=== PATIENT | male | born 1965 | race Caucasian/White ===

== ENCOUNTER 2016-08-22 12:36 | Emergency (ER) | payer MEDICARE, MEDICAID ==
[~2016-08-22] VITALS: Ht 180.3 cm; Wt 77.1 kg
[~2016-08-22 12:36] MED LIST: CYCL5TAB PO; MORP15TA7 PO; OXYC10TA49 PO
--- NOTE | 2016-08-22 13:05 | NUR ---
AT BEDSIDE PERFORMING MSE
--- NOTE | 2016-08-22 14:38 | NUR ---
Patient discharged to home in stable conditon. Written and verbal after care instructions given to patient. Patient verbalizes understanding of instructions.
== END 2016-08-22 15:01 | disposition home or self-care (01) ==
LOC: ER 12:36
DX: S93.401A Sprain of unspecified ligament of right ankle, initial encounter (principal); R25.2 Cramp and spasm; G82.50 Quadriplegia, unspecified; F32.9 Major depressive disorder, single episode, unspecified; F10.20 Alcohol dependence, uncomplicated; X58.XXXA Exposure to other specified factors, initial encounter; Y93.89 Activity, other specified; Y99.8 Other external cause status; Y92.89 Other specified places as the place of occurrence of the external cause
CPT/HCPCS: 73610; 73650; 99284; A4663

== ENCOUNTER 2017-05-07 18:46 | Emergency (ER) | payer MEDICARE, MEDICAID ==
[~2017-05-07] VITALS: Ht 182.9 cm; Wt 68.0 kg
--- NOTE | 2017-05-07 20:20 | NUR ---
Patient walked in to ER requesting medication refill. To room 4B.
--- NOTE | 2017-05-07 20:26 | NUR ---
ERMD at bedside.
[2017-05-07] MEDS ORDERED: MORPHINE SULFATE IR 30 MG TABLET PO PRN (20:30)
--- NOTE | 2017-05-07 20:50 | NUR ---
Patient discharged to home in stable conditon. Written and verbal after care instructions given. Patient verbalizes understanding of instructions.
[2017-05-07] MEDS ORDERED: MORPHINE SULFATE IR 30 MG TABLET ONE (20:56)
== END 2017-05-07 20:51 | disposition home or self-care (01) ==
LOC: ER 18:49
DX: Z76.0 Encounter for issue of repeat prescription (principal); G89.29 Other chronic pain; M54.2 Cervicalgia; F43.10 Post-traumatic stress disorder, unspecified
CPT/HCPCS: 99283; A4663

== ENCOUNTER 2017-10-02 17:33 | Emergency (ER) | payer MEDICARE, MEDICAID ==
[~2017-10-02] VITALS: Ht 182.9 cm; Wt 68.0 kg
--- NOTE | 2017-10-02 17:53 | NUR ---
Patient discharged to home in stable conditon. Written and verbal after care instructions given to patient. Patient verbalizes understanding of instructions.
== END 2017-10-02 17:54 | disposition home or self-care (01) ==
LOC: ER 17:35
DX: F43.10 Post-traumatic stress disorder, unspecified (principal); F90.9 Attention-deficit hyperactivity disorder, unspecified type; R00.0 Tachycardia, unspecified; F32.9 Major depressive disorder, single episode, unspecified; I48.91 Unspecified atrial fibrillation
CPT/HCPCS: 99283; A4663; 93005

== ENCOUNTER 2018-04-13 21:21 | Emergency (ER) | payer MEDICARE, MEDICAID ==
[~2018-04-13] VITALS: Ht 172.7 cm; Wt 83.9 kg
[2018-04-13] MEDS ORDERED: HYDROMORPHONE 1 MG/1 ML DISP.SYRIN IM ONE (22:15)
[2018-04-13] MEDS ORDERED: HYDROMORPHONE 1 MG/1 ML DISP.SYRIN ONE (22:16)
--- NOTE | 2018-04-13 22:20 | NUR ---
PT A/OX4, ABLE TO FOLLOW COMMANDS. PT SELF-AMBULATED INTO THE DEPARTMENT USING A SINGLE LEG CANE. PT C/O LOWER BACK PAIN THAT STARTED YESTERDAY AFTER A FALL AT HOME. PT STATES HIS LEGS "GAVE OUT" AND HE FELL ONTO HIS BUTTOCKS. PT DENIES HEAD INJURY, LOC. LOWER BACK PAIN PROVOKED UPON MOVEMENT, SHARP IN QUALITY, DOES NOT RADIATE, 8/10, CONSTANT. PT DENIES C/P, SOB, N/V/D, DIZZINESS, HEADACHE.
--- NOTE | 2018-04-13 22:45 | NUR ---
equipment technician at bedside
--- NOTE | 2018-04-13 22:54 | NUR ---
Patient discharged to home in stable conditon. Written and verbal after care instructions given. Patient verbalizes understanding of instructions. Pt. d/c w/ prescription per MD order, informed not to drive after taking medication, all pt. belongings taken,
== END 2018-04-13 22:57 | disposition home or self-care (01) ==
LOC: ER 21:23
DX: M54.5 Low back pain (principal); I48.91 Unspecified atrial fibrillation; Z79.891 Long term (current) use of opiate analgesic; Z79.899 Other long term (current) drug therapy
CPT/HCPCS: 71045; 72100; 72170; 96372; 99283; J1170; A4663

== ENCOUNTER 2018-08-17 12:15 | Emergency (ER) | payer MEDICARE, MEDICAID ==
[~2018-08-17] VITALS: Ht 172.7 cm; Wt 83.9 kg
--- NOTE | 2018-08-17 13:50 | NUR ---
Patient discharged to home in stable conditon. Written and verbal after care instructions given. Patient verbalizes understanding of instructions.
[2018-08-17 13:51] VITALS: BP 111/87
== END 2018-08-17 13:52 | disposition home or self-care (01) ==
LOC: ER 12:15
DX: K59.00 Constipation, unspecified (principal); I48.91 Unspecified atrial fibrillation; Z79.899 Other long term (current) drug therapy
CPT/HCPCS: 74021; A4663

== ENCOUNTER 2020-02-06 21:51 | Emergency (ER) | payer MEDICAID, MEDICARE | END 2020-02-06 22:46 | disposition left against medical advice (07) | LOC: ER 21:53 | DX: Z75.3 Unavailability and inaccessibility of health-care facilities (principal) ==

== ENCOUNTER 2020-02-11 14:41 | Emergency (ER) | payer MEDICARE, OTHER ==
[~2020-02-11] VITALS: Ht 172.7 cm; Wt 83.9 kg
--- NOTE | 2020-02-11 14:50 | NUR ---
patient seen by Dr. Roblero.
[2020-02-11] MEDS ORDERED: HYDROCODONE/APAP 10-325 MG TABLET PO ONE (15:15)
[2020-02-11] MEDS ORDERED: HYDROCODONE/APAP 10-325 MG TABLET ONE (15:21)
--- NOTE | 2020-02-11 16:07 | NUR ---
dcd instructions and prescription given to pt. who verbalized understanding.
== END 2020-02-11 16:09 | disposition home or self-care (01) ==
LOC: ER 14:41
DX: S49.92XA Unspecified injury of left shoulder and upper arm, initial encounter (principal); W19.XXXA Unspecified fall, initial encounter; Y92.89 Other specified places as the place of occurrence of the external cause; G89.4 Chronic pain syndrome; G82.50 Quadriplegia, unspecified; S14.106S Unspecified injury at C6 level of cervical spinal cord, sequela; W19.XXXS Unspecified fall, sequela; N31.9 Neuromuscular dysfunction of bladder, unspecified
CPT/HCPCS: 73030; 73080; A4663

== ENCOUNTER 2021-07-11 19:01 | Emergency (ER) | payer MEDICARE, OTHER ==
[~2021-07-11] VITALS: Ht 175.3 cm; Wt 81.6 kg
--- NOTE | 2021-07-11 19:55 | NUR ---
xray at bedside.
[2021-07-11] MEDS ORDERED: LIDOCAINE HCL 1% 20 ML VIAL IJ ONE (20:00)
[2021-07-11] MEDS ORDERED: NEOMY/BACITRA/POLYMYXIN B OINT UD PACKET TP ONE (22:06)
[2021-07-11] MEDS ORDERED: ACET1TAB23 PO (22:10)
[2021-07-11] MEDS ORDERED: AMOX-430 PO (22:10)
[2021-07-11] MEDS ORDERED: AMOXICILLIN-CLAVUL 875-125MG TABLET PO ONE (22:15)
[2021-07-11] MEDS ORDERED: AMOXICILLIN-CLAVUL 875-125MG TABLET ONE (22:18)
[2021-07-11] MEDS ORDERED: NEOM1OIN10 TP (22:23)
[2021-07-11 22:27] VITALS: BP 154/75
--- NOTE | 2021-07-11 22:27 | NUR ---
Patient discharged to home in stable condition. Written and verbal after care instructions given. Patient verbalizes understanding of instructions. Stressed follow up or return to ER for worsening s/s.
== END 2021-07-11 22:28 | disposition home or self-care (01) ==
LOC: ER 19:04
DX: S91.214A Laceration without foreign body of right lesser toe(s) with damage to nail, initial encounter (principal); W22.8XXA Striking against or struck by other objects, initial encounter; Y92.89 Other specified places as the place of occurrence of the external cause; Y99.8 Other external cause status; G89.4 Chronic pain syndrome; N31.9 Neuromuscular dysfunction of bladder, unspecified; R03.0 Elevated blood-pressure reading, without diagnosis of hypertension
CPT/HCPCS: 73660; A4217; A4663

== ENCOUNTER 2021-07-21 21:27 | Emergency (ER) | payer MEDICARE, OTHER ==
[~2021-07-21] VITALS: Ht 172.7 cm; Wt 81.6 kg
[~2021-07-21 21:27] MED LIST changes: +ACET1TAB23 PO; +AMOX-430 PO; +NEOM1OIN10 TP
--- NOTE | 2021-07-21 23:07 | NUR ---
sutures removed from 3rd right toe by Dr. Guillermo.
[2021-07-21 23:44] VITALS: BP 135/86
--- NOTE | 2021-07-21 23:44 | NUR ---
Patient discharged to home in stable condition. Written and verbal after care instructions given. Patient verbalizes understanding of instructions. Stressed follow up or return to ER for worsening s/s. pt ambulated with cane. denies pain. no sob. no chest pain.
== END 2021-07-21 23:45 | disposition home or self-care (01) ==
LOC: ER 21:30
DX: S91.204D Unspecified open wound of right lesser toe(s) with damage to nail, subsequent encounter (principal); X58.XXXD Exposure to other specified factors, subsequent encounter; G89.4 Chronic pain syndrome; Z86.59 Personal history of other mental and behavioral disorders
CPT/HCPCS: A4663

== ENCOUNTER 2023-10-07 09:08 | Emergency (ER) | payer MEDICARE, OTHER ==
[~2023-10-07] VITALS: Ht 172.7 cm; Wt 79.4 kg
[2023-10-07 09:13] VITALS: O2SAT 96
[2023-10-07] MEDS ORDERED: ALPR0.5T PO (10:06)
[2023-10-08] MEDS ORDERED: NYST15OI TP (16:02)
[2023-10-08] MEDS ORDERED: SULF1TAB48 PO (16:02)
[2023-10-08] MEDS ORDERED: NYST15PO4 TP (16:02)
== END 2023-10-07 10:12 | disposition home or self-care (01) ==
LOC: ER 09:09
DX: G47.00 Insomnia, unspecified (principal); I48.91 Unspecified atrial fibrillation; F32.A Depression, unspecified; Z79.899 Other long term (current) drug therapy; Z98.890 Other specified postprocedural states
CPT/HCPCS: A4606; A4663

== ENCOUNTER 2023-10-08 14:56 | Emergency (ER) | payer MEDICARE, OTHER ==
[~2023-10-08] VITALS: Ht 180.3 cm; Wt 79.4 kg
[~2023-10-08 14:56] MED LIST changes: +ALPR0.5T PO
[2023-10-08] MEDS ORDERED: SULF1TAB48 PO (16:02)
[2023-10-08] MEDS ORDERED: NYST15OI TP (16:02)
[2023-10-08] MEDS ORDERED: NYST15PO4 TP (16:02)
[2023-10-08 16:15] VITALS: BP 117/87; TEMP 98.6; O2SAT 98
== END 2023-10-08 16:19 | disposition home or self-care (01) ==
LOC: ER 14:58
DX: L02.828 Furuncle of other sites (principal); B35.6 Tinea cruris; I48.91 Unspecified atrial fibrillation; F32.A Depression, unspecified; Z79.899 Other long term (current) drug therapy; Z98.890 Other specified postprocedural states; Z60.2 Problems related to living alone
CPT/HCPCS: A4606; A4663

== ENCOUNTER 2023-10-30 21:16 | Emergency (ER) | payer MEDICARE, OTHER ==
[~2023-10-30] VITALS: Ht 182.9 cm; Wt 79.4 kg
[~2023-10-30 21:16] MED LIST changes: +NYST15OI TP; +NYST15PO4 TP; +SULF1TAB48 PO
[2023-10-30] MEDS ORDERED: DIAZ10TA4 PO (22:04)
[2023-10-30 22:15] VITALS: BP 125/70; TEMP 98.3; O2SAT 97
== END 2023-10-30 22:17 | disposition home or self-care (01) ==
LOC: ER 21:19
DX: G47.00 Insomnia, unspecified (principal); F41.9 Anxiety disorder, unspecified; F43.20 Adjustment disorder, unspecified; F17.210 Nicotine dependence, cigarettes, uncomplicated; Z98.890 Other specified postprocedural states; Z79.899 Other long term (current) drug therapy; Z60.2 Problems related to living alone
CPT/HCPCS: A4606; A4663

== ENCOUNTER 2024-04-16 16:28 | Emergency (ER) | payer MEDICARE, OTHER ==
[~2024-04-16] VITALS: Ht 177.8 cm; Wt 79.4 kg
[~2024-04-16 16:28] MED LIST changes: +DIAZ10TA4 PO
[2024-04-16] MEDS ORDERED: NEOMY/BACITRA/POLYMYXIN B OINT UD PACKET TP ONE (17:21)
[2024-04-16 17:45] VITALS: BP 153/90; TEMP 98.5; O2SAT 98
== END 2024-04-16 17:46 | disposition home or self-care (01) ==
LOC: ER 16:28
DX: S01.81XA Laceration without foreign body of other part of head, initial encounter (principal); F17.200 Nicotine dependence, unspecified, uncomplicated; Z88.7 Allergy status to serum and vaccine; W18.30XA Fall on same level, unspecified, initial encounter; Y93.89 Activity, other specified; Y92.89 Other specified places as the place of occurrence of the external cause; Y99.8 Other external cause status
CPT/HCPCS: A4606; A4663